=== PATIENT | female | born 1990 | race American Indian/Alaskan Native ===

== ENCOUNTER 2021-10-08 11:40 | Outpatient (CLI) | payer OTHER ==
[2021-10-08 12:39] LABS: Basophils % (Auto) 0.5 % (0.0-1.8); Eosinophils # (Auto) 0.1 K/mm3 (0.0-0.4); Eosinophils % (Auto) 1.1 % (0.0-4.3); Hematocrit 39.5 % (30.3-42.9); Hemoglobin 12.8 gm/dl (10.1-14.3); Lymphocytes # (Auto) 1.9 K/mm3 (1.2-5.4); Lymphocytes % (Auto) 21.6 % (13.4-35.0); Mean Corpuscular HGB Conc 32 % (30-34); Mean Corpuscular Volume 85 fl (79-97); Monocytes # (Auto) 0.7 K/mm3 (0.0-0.8); Platelet Count 290 K/mm3 (140-440); Red Blood Count 4.65 M/mm3 (3.65-5.03); Red Cell Distribution Width 13.4 % (13.2-15.2)
[2021-10-08 13:02] LABS: Alanine Aminotransferase 10 units/L (7-56); Blood Urea Nitrogen 9 mg/dL (7-17); Calcium 8.6 mg/dL (8.4-10.2); HDL Cholesterol 50 mg/dL (40-59); Hemolysis Index 0; Iron 39 ug/dL (37-170); LDL Cholesterol,Direct 64 mg/dL (50-130); Total Iron Binding Capacity 322 mcg/dL (250-450)
[2021-10-08 13:03] LABS: BUN/Creatinine Ratio 13
[2021-10-13 15:19] LABS: Vitamin D, 25-OH, D2 <4 ng/mL
== END 2021-10-08 11:41 | disposition home or self-care (01) ==
LOC: LAB 11:40
PROVIDERS: ATTEND Surgery
DX: Z01.812 Encounter for preprocedural laboratory examination (principal); Z13.1 Encounter for screening for diabetes mellitus; Z13.29 Encounter for screening for other suspected endocrine disorder; K30 Functional dyspepsia; E55.9 Vitamin D deficiency, unspecified; E66.01 Morbid (severe) obesity due to excess calories; Z55.9 Problems related to education and literacy, unspecified; Z13.21 Encounter for screening for nutritional disorder
CPT/HCPCS: 36415; 80053; 80061; 82306; 82607; 82728; 83036; 83550; 84443; 85025; 85730

== ENCOUNTER → 2021-10-17 | Outpatient (CLI) | payer OTHER | END | disposition home or self-care (01) | LOC: SLR 11:00 | PROVIDERS: ATTEND Surgery | DX: G47.30 Sleep apnea, unspecified (principal) | CPT/HCPCS: G0399 ==

== ENCOUNTER 2021-10-21 07:22 | Outpatient (CLI) | payer OTHER ==
--- NOTE | 2021-10-21 09:43 | Fluoroscopy Report ---
ESOPHAGRAM INDICATION / CLINICAL INFORMATION: E66.01 K30 Z01.818 TECHNIQUE: Esophagram was performed with double contrast barium and air. COMPARISON: None available. FINDINGS: MOTILITY: No significant abnormality. MUCOSA: No significant abnormality. MASS: None. STRICTURE: None. HIATAL HERNIA: None. REFLUX: None. BARIUM TABLET: Tablet passed into the stomach without delay. ADDITIONAL FINDINGS: None. Fluoroscopy Time: 2.3 minutes. Fluoroscopy Images: 15. IMPRESSION: 1. No significant abnormality. Signer Name: Jaylon Sanchez DO Signed: 10/21/2021 9:39 AM Workstation Name: [id number]
== END 2021-10-21 07:23 | disposition home or self-care (01) ==
LOC: FLUORO 07:22
PROVIDERS: ATTEND Surgery
DX: Z01.818 Encounter for other preprocedural examination (principal); K30 Functional dyspepsia; E66.01 Morbid (severe) obesity due to excess calories
CPT/HCPCS: 74220

== ENCOUNTER → 2021-11-08 | Outpatient (CLI) | payer OTHER | END | disposition home or self-care (01) | LOC: SLR 11:00 | PROVIDERS: ATTEND Surgery | DX: G47.33 Obstructive sleep apnea (adult) (pediatric) (principal) | CPT/HCPCS: 95811 ==

== ENCOUNTER 2021-12-21 07:30 | Day surgery (SDC) | payer OTHER ==
[~2021-12-21 07:30] MED LIST: SODIUM CHLORIDE 0.9% 1000 ML 1,000 ML IV SCH
[2021-12-21] MEDS ORDERED: WATER FOR IRRIG STERILE 250 ML BOTTLE IR ONE (07:35)
--- NOTE | 2021-12-21 09:18 | Anesthesia Day of Surgery ---
Anesthesia Day of Surgery - Day of Surgery Patient Examined: Yes Patient H&P Reviewed: Yes Patient is NPO: Yes
--- NOTE | 2021-12-21 09:18 | Anesthesia Consultation ---
Anesthesia Consult and Med Hx Date of service: 12/21/21 - Airway Anesthetic Teeth Evaluation: Good ROM Head & Neck: Adequate Mental/Hyoid Distance: Adequate Mallampati Class: Class II Intubation Access Assessment: Good - Pre-Operative Health Status ASA Pre-Surgery Classification: ASA3 Proposed Anesthetic Plan: MAC - Pulmonary Hx Smoking: No Hx Asthma: No Hx Sleep Apnea: Yes - Cardiovascular System Hx Hypertension: No - Central Nervous System Hx Seizures: No Hx Back Pain: Yes Hx Psychiatric Problems: No - Gastrointestinal Hx Gastroesophageal Reflux Disease: No - Endocrine Hx Renal Disease: No Hx Hypothyroidism: No Hx Hyperthyroidism: No - Hematic Hx Anemia: No Hx Sickle Cell Disease: No - Other Systems Hx Alcohol Use: No Hx Obesity: Yes
[2021-12-21] MEDS ORDERED: LIDOCAINE MPF (2%) 20 MG/1 ML VIAL 5 ML ONE (10:05)
[2021-12-21] MEDS ORDERED: propofoL 200 MG/20 ML VIAL IV ONE ×2 (10:05)
--- NOTE | 2021-12-21 10:19 | Discharge Summary ---
Providers - Providers Date of Admission: 12/21/2021 Date of discharge: 12/21/21 Attending physician: FLORI THOMAS MD Hospitalization Reason for admission: pre-op egd Condition: Good Procedures: egd w/ bx Hospital course: Pt presented for a pre-op EGD as part of planning for up coming bariatric surgery. Procedure was uneventful and pt recovered well and was discharged to home. Disposition: 01 HOME / SELF CARE / HOMELESS Final Discharge Diagnosis (Prints w/discharge instructions): gerd, morbid obesity Core Measure Documentation - Palliative Care Palliative Care/ Comfort Measures: Not Applicable - Core Measures Any of the following diagnoses?: none Exam - Physical Exam Narrative exam: unchanged from pre-op exam Plan Activity: advance as tolerated Diet: low carbohydrate
--- NOTE | 2021-12-21 10:26 | Operative Report ---
Operative Report Operative Report: DATE: 12/21/2021 SURGERY: Upper endoscopy. SURGEON: Torri Ferguson M.D. PROCEDURE: EGD with biopsy PRE OP DX: morbid obesity, GERD POST OP DX: morbid obesity, GERD TYPE OF ANESTHESIA: MAC. ESTIMATED BLOOD LOSS: None. COMPLICATIONS: None. SPECIMENS REMOVED: antral biopsy FINDINGS: 1. Small hiatal hernia. 2. antral peptic ulcer disease INDICATIONS:INDICATION FOR PROCEDURE: Patient is a 31-year-old female with a long history of morbid obesity. She is planned to have a weight loss procedure and is here for preoperative planning EGD. PROCEDURE DETAILS: After consent was reviewed, patient was taken back to the operating room where patient was placed in the left lateral decubitus position and a bite block was placed in the mouth. After a time-out was called, MAC anesthesia was initiated. I then passed the endoscope into her oropharynx, into her esophagus, visualized the entire esophagus, which was all within normal limits. Z-line was noted to about 36 cm from incisors. I then visualized the stomach and the first portion of the duodenum and there were no abnormalities I could clearly visualize except for antral gastritis and peptic ulcer disease with mild superficial mucosal ulcerative changes. A cold forceps biopsy of the antrum was taken and will be sent to pathology to evaluate for H.pylori. I then retroflexed the scope in the stomach and visualized the hiatus and I could see a small hiatal hernia. I then desufflated the stomach and removed the endoscope. Patient tolerated procedure well and was transferred to recovery room in good and stable condition.
[2021-12-21 15:21] VITALS: BP 140/90
--- NOTE | 2021-12-21 16:16 | Post Anesthesia Evaluation ---
- Post Anesthesia Evaluation Patient Participated: Yes Airway Patent: Yes Stable Respiratory Function: Yes Nausea/Vomiting: No Temp > 96.8F: Yes Pain Manageable: Yes Adequeate Hydration: Yes Anesthesia Complications: No Block Receding Appropriately: Not Applicable Patient on Ventilator: No
== END 2021-12-21 11:40 | disposition home or self-care (01) ==
LOC: GIO 07:30
PROVIDERS: ATTEND Surgery
DX: K21.9 Gastro-esophageal reflux disease without esophagitis (principal); E66.01 Morbid (severe) obesity due to excess calories; K30 Functional dyspepsia; K44.9 Diaphragmatic hernia without obstruction or gangrene; K27.9 Peptic ulcer, site unspecified, unspecified as acute or chronic, without hemorrhage or perforation; K29.70 Gastritis, unspecified, without bleeding; G47.30 Sleep apnea, unspecified; Z79.899 Other long term (current) drug therapy; Z68.42 Body mass index [BMI] 45.0-49.9, adult; Z83.3 Family history of diabetes mellitus
CPT/HCPCS: 43239; 88305; J2704; J7030